=== PATIENT | female | born 1935 | race Caucasian/White ===

== ENCOUNTER 2019-03-30 16:47 | Inpatient (IN) | payer MEDICARE, OTHER ==
[2019-03-30] MEDS ORDERED: SODIUM CHLORIDE 0.9% 1,000 ML IV ONE (17:17)
--- NOTE | 2019-03-30 17:22 | ED ---
General Adult HPI - General Chief complaint: Urogenital Stated complaint: Urogenital Time Seen by Provider: 03/30/19 16:53 Source: EMS, RN notes reviewed, old records reviewed Mode of arrival: EMS Limitations: no limitations - History of Present Illness Initial comments: Patient is an 84-year-old female with recent history of right leg fracture. She reports that she fell on March 21 and was sent to [facility]. She reports that she had ORIF procedure and then [facility]. She reports that when she fell she had a prolapsed uterus at that time. Patient reports that he has been out for the past week. Patient was sent over for further evaluation. She denies any abdominal surgical history. Staff lay she has ileus complaining distention and she did have to have a Fleet enema to have a bowel movement today. Patient reports she's been urinating around the uterine prolapse. She's had 3 vaginal deliveries. - Related Data Allergies Allergy/AdvReac Type Severity Reaction Status Date / Time Penicillins Allergy Unknown Verified 03/30/19 17:23 Childhood Review of Systems ROS Statement: Those systems with pertinent positive or pertinent negative responses have been documented in the HPI. ROS Other: All systems not noted in ROS Statement are negative. Past Medical History Past Medical History: No Reported History History of Any Multi-Drug Resistant Organisms: MRSA Date of last positivie culture/infection: 11/19/16 MDRO Source:: Urine Additional Past Surgical History / Comment(s): displaced fracture of lateral malleolus of right fibula Smoking Status: Never smoker Past Alcohol Use History: None Reported Past Drug Use History: None Reported General Exam - General Exam Comments Initial Comments: This is an 84-year-old female. Alert and oriented 3. No significant distress. Limitations: no limitations General appearance: alert, in no apparent distress Head exam: Present: atraumatic, normocephalic, normal inspection Eye exam: Present: normal appearance, PERRL, EOMI. Absent: scleral icterus, con junctival injection, periorbital swelling ENT exam: Present: normal exam, mucous membranes moist Neck exam: Present: normal inspection. Absent: tenderness, meningismus, lymphadenopathy Respiratory exam: Present: normal lung sounds bilaterally. Absent: respiratory distress, wheezes, rales, rhonchi, stridor Cardiovascular Exam: Present: regular rate, normal rhythm, normal heart sounds. Absent: systolic murmur, diastolic murmur, rubs, gallop, clicks GI/Abdominal exam: Present: soft, distended, normal bowel sounds. Absent: guarding, rebound, rigid External exam: Present: other (Patient has a large uterine prolapse, edematous. Approximately size of this football. Patient has no tenderness to palpation over the uterine prolapse.). Absent: normal external exam Extremities exam: Present: normal inspection, full ROM, normal capillary refill. Absent: tenderness, pedal edema, joint swelling, calf tenderness Back exam: Present: normal inspection Neurological exam: Present: alert, oriented X3, CN II-XII intact Psychiatric exam: Present: normal affect, normal mood Skin exam: Present: warm, dry, intact, normal color. Absent: rash Course Vital Signs 03/30/19 16:48 Temperature 98 F Pulse Rate 74 Respiratory 16 Rate Blood Pressure 150/78 O2 Sat by Pulse 91 L Oximetry Medical Decision Making - Medical Decision Making Patient's of 84-year-old female with recent history of right leg fracture. She is metal [place]. She presents today for concern for uterine prolapse. Patient has a very large uterine prolapse approximately size of a football. The uterus is edematous. She has no significant pain. Patient had Amrtinez catheter placed by Dr. Davila. Approximately 1800 mL of urine was removed from patient's bladder. Dr. Christensen was in to evaluate the Patient will take the Patient reports that his surgery. - Lab Data Result diagrams: 03/30/19 17:30 Lab Results 03/30/19 03/30/19 03/30/19 Range/Units 17:30 17:30 18:10 WBC 11.6 H (3.8-10.6) k/uL RBC 4.53 (3.80-5.40) m/uL Hgb 13.4 (11.4-16.0) gm/dL Hct 40.9 (34.0-46.0) % MCV 90.3 (80.0-100.0) fL MCH 29.5 (25.0-35.0) pg MCHC 32.7 (31.0-37.0) g/dL RDW 13.6 (11.5-15.5) % Plt Count 224 (150-450) k/uL Neutrophils % 85 % Lymphocytes % 5 % Monocytes % 8 % Eosinophils % 1 % Basophils % 0 % Neutrophils # 10.0 H (1.3-7.7) k/uL Lymphocytes # 0.6 L (1.0-4.8) k/uL Monocytes # 0.9 (0-1.0) k/uL Eosinophils # 0.1 (0-0.7) k/uL Basophils # 0.0 (0-0.2) k/uL PT 10.3 (9.0-12.0) sec INR 1.0 (<1.2) APTT 23.8 (22.0-30.0) sec Urine Color Yellow Urine Appearance Cloudy H (Clear) Urine pH 5.0 (5.0-8.0) Ur Specific [place] 1.012 (1.001-1.035) Urine Protein Negative (Negative) Urine Glucose (UA) Negative (Negative) Urine Ketones Negative (Negative) Urine Blood Moderate H (Negative) Urine Nitrite Positive H (Negative) Urine Bilirubin Negative (Negative) Urine Urobilinogen <2.0 (<2.0) mg/dL Ur Leukocyte Esterase Large H (Negative) Urine RBC 162 H (0-5) /hpf Urine WBC 47 H (0-5) /hpf Ur Squamous Epith Cells 3 (0-4) /hpf Amorphous Sediment Rare H (None) /hpf Urine Bacteria Occasional H (None) /hpf Urine Mucus Occasional H (None) /hpf Disposition Clinical Impression: Complete uterine prolapse Disposition: ADMITTED IP TO [facility] Condition: Stable Is patient prescribed a controlled substance at d/c from ED?: No Referrals: Ethan Mendoza MD [Primary Care Provider] - 1-2 days Time of Disposition: 18:23
[2019-03-30 18:04] LABS: Basophils % (A) 0 %; Eosinophils # (A) 0.1 k/uL (0-0.7); Eosinophils % (A) 1 %; HCT 40.9 % (34.0-46.0); HGB 13.4 gm/dL (11.4-16.0); Lymphocytes # (A) 0.6 k/uL (1.0-4.8); Lymphocytes % (A) 5 %; MCH 29.5 pg (25.0-35.0); MCHC 32.7 g/dL (31.0-37.0); MCV 90.3 fL (80.0-100.0); Mean Platelet Volume 6.5; Monocytes # (A) 0.9 k/uL (0-1.0); Monocytes % (A) 8 %; Neutrophils % (A) 85 %; Platelet Count 224 k/uL (150-450); RBC 4.53 m/uL (3.80-5.40); RDW 13.6 % (11.5-15.5); WBC 11.6 k/uL (3.8-10.6)
--- NOTE | 2019-03-30 18:05 | XR ---
EXAMINATION TYPE: XR KUB DATE OF EXAM: 03/30/2019 COMPARISON: NONE HISTORY: Prolapsed uterus TECHNIQUE: 2 views supine FINDINGS: There is gas in multiple loops of bowel without disproportionate dilation of any one loop. There is mild atelectasis left lung base. There is no sign of free air. There is no sign of a mass. T here are no pathologic calcifications definitely over the kidneys. IMPRESSION: There is evidence of intestinal ileus. No free air.
[2019-03-30 18:06] LABS: Albumin 3.2 g/dL (3.5-5.0); Calcium 8.2 mg/dL (8.4-10.2); Potassium 4.5 mmol/L (3.5-5.1); Total Protein 6.1 g/dL (6.3-8.2)
[2019-03-30 18:10] LABS: Partial Thromboplastin Time 23.8 sec (22.0-30.0); Prothrombin Time 10.3 sec (9.0-12.0)
[2019-03-30 18:21] LABS: Amorphous Sediment,Urine Rare /hpf; Appearance,Urine Cloudy (Clear); Bacteria,Urine Occasional /hpf; Bilirubin,Urine Negative (Negative); Blood,Urine Moderate (Negative); Color,Urine Yellow; Glucose,Urine (UA) Negative (Negative); Ketones,Urine Negative (Negative); Leukocyte Esterase,Urine Large (Negative); Mucus,Urine Occasional /hpf; Nitrite,Urine Positive (Negative); Protein,Urine Negative (Negative); RBC,Urine 162 /hpf (0-5); Specific Gravity,Urine 1.012 (1.001-1.035); Squamous Epithelial Cell,Urine 3 /hpf (0-4); Urobilinogen,Urine <2.0 mg/dL (<2.0); WBC,Urine 47 /hpf (0-5)
--- NOTE | 2019-03-30 18:22 | P.HPOB ---
History of Present Illness H&P Date: 03/30/19 Chief Complaint: Uterine prolapse This is a 84-year-old female 3 para 3001 that presents from [facility] facility with complaints of prolapsing uterus. Patient states that she underwent a fall and fracture repair at [facility] on 03/21. She states that she felt so hard her uterus fell out. She denies discomfort at this time. She denies vaginal bleeding. She does wear a diaper and is incontinent of urine. She states her last bowel movement was this morning after a fleets enema. Prior to this it was on 03/21 the time of the fal l. She is denying nausea or vomiting. She states she has been menopausal since age 48 and denies any vaginal bleeding since that time. She does wear a diaper and is incontinent of urine. As stated above she is a 3 para 3001 she had 3 spontaneous vaginal deliveries of 8 pound babies, 2 of her children are 1 remains living. Bedside ultrasound is complete Martinez catheter is seen within the bladder, uterus appears in vagina, ovaries were not visualized secondary to bowel in the adnexa. Review of Systems Constitutional: Denies chills, Denies fatigue, Denies fever Cardiovascular: Denies chest pain, Denies edema Respiratory: Denies dyspnea Gastrointestinal: Reports constipation, Denies abdominal pain, Denies diarrhea, Denies nausea, Denies vomiting Genitourinary: Denies abnormal vaginal bleeding Menstruation: Reports postmenopausal Past Medical History Past Medical History: No Reported History History of Any Multi-Drug Resistant Organisms: MRSA Date of last positivie culture/infection: 11/19/16 MDRO Source:: Urine Additional Past Surgical History / Comment(s): displaced fracture of lateral malleolus of right fibula Smoking Status: Never smoker Past Alcohol Use History: None Reported Past Drug Use History: None Reported Medications and Allergies Allergies Allergy/AdvReac Type Severity Reaction Status Date / Time Penicillins Allergy Unknown Verified 03/30/19 17:23 Childhood Exam Osteopathic Statement: *. No significant issues noted on an osteopathic structural exam other than those noted in the History and Physical/Consult. 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 Breathing is noted to be nonlabored her heart has regular rate and rhythm her abdomen is soft and nontender on inspection of the patient's external vaginal anatomy a large protr uding mass suspicious for the uterus is noted Martinez catheter was placed at this time in copious amount of clear yellow urine were emptied from the bladder. I was unable to do a reasonable pelvic exam given the size of the masses protruding from the uterus. Once again bedside ultrasound confirmed that the bladder was empty now that the Martinez catheter had been placed in 1800 mL of urine had been removed. After the bladder was emptied the patient was reexamined and the mass was not any significantly smaller Results Result Diagrams: 03/30/19 17:30 Abnormal Lab Results - Last 24 Hours (Table) 03/30/19 Range/Units 17:30 WBC 11.6 H (3.8-10.6) k/uL Neutrophils # 10.0 H (1.3-7.7) k/uL Lymphocytes # 0.6 L (1.0-4.8) k/uL Assessment and Plan (1) Complete uterine prolapse Current Visit: Yes Status: Acute Code(s): N81.3 - COMPLETE UTEROVAGINAL PROLAPSE SNOMED Code(s): 32024416 Plan: Given the patient's physical findings recommending exam under anesthesia, vaginal hysterectomy, possible expiratory laparotomy, diagnostic cystoscopy. U nsure if the bladder is involved in this extrusion/mass coming through the vagina. The cervix appears at the end of the mass I'm suspicious that it is just uterus. Patient was counseled on these findings and risks of surgery including bladder injury, bowel injury. Patient states understanding questions are answered. Patient states she has 1 son that is on his way to the hospital but she denies any questions and states understanding of the procedure at hand. Will proceed to the operating suite. Anesthesia and the OR team were notified.
[2019-03-30] MEDS ORDERED: NALOXONE 0.4 MG/ML 1 ML VIAL IV PRN ×2 (18:23→19:53)
[2019-03-30] MEDS ORDERED: ACETAMINOPHEN TAB 325 MG TAB PO PRN (18:23)
[2019-03-30] MEDS ORDERED: KETOROLAC 30 MG/ML 1 ML VIAL IVP PRN (18:23)
[2019-03-30] MEDS ORDERED: IBUPROFEN 400 MG TAB PO PRN (18:23)
[2019-03-30] MEDS ORDERED: ONDANSETRON 4 MG/2 ML VIAL IVP PRN (18:23)
[2019-03-30] MEDS ORDERED: LEVOFLOXACIN 750MG-D5W PMX 750 MG in DEXTROSE/WATER 1 150ML.BAG IVPB ONE (18:41)
--- NOTE | 2019-03-30 18:51 | US ---
EXAMINATION TYPE: US pelvic complete DATE OF EXAM: 03/30/2019 COMPARISON: NONE CLINICAL HISTORY: Pain. Patient presents with large prolapse, need to assess if prolapse is just UT v ersus bladder TECHNIQUE: TA. Transabdominal sonographic Date of LMP: 40 yrs ago EXAM MEASUREMENTS: Assessment of pelvis prior to patient going to OR for prolapsed UT 1. Uterus: prolapsed UT, minimal portion of UT seen at vaginal canal 3. Right Ovary: not seen due to atrophy and bowel gas 4. Left Ovary: not seen due to atrophy and bowel gas 5. Bilateral Adnexa: wnl 6. Posterior cul-de-sac: could see some uterine tissue at vaginal canal patient was cathed and they just drained bladder, was able to see mariano anterior to minimal UT tiss ue at vaginal canal Dr Davila in room at time of scan IMPRESSION: The entire uterus including uterine fundus is below the level of the Mariano catheter in th e urinary bladder and related to uterine prolapse. There is no free fluid in the pelvis.
[2019-03-30] MEDS ORDERED: LACTATED RINGERS 1,000 ML IV ONE (19:20)
[2019-03-30] MEDS ORDERED: PROPOFOL 10 MG/ML 20 ML VIAL IV ONE (19:20)
[2019-03-30] MEDS ORDERED: fentaNYL (PF) 50 MCG/ML 2 ML AMP ONE (19:20)
[2019-03-30] MEDS ORDERED: NEOSTIGMINE 1 MG/ML 10 ML VIAL ONE (19:20)
[2019-03-30] MEDS ORDERED: .MORPHINE SULFATE (INJ) 10 MG/ML SYRINGE ONE (19:20)
[2019-03-30] MEDS ORDERED: ROCURONIUM BROMIDE 10 MG/ML 10 ML VIAL IV ONE (19:20)
[2019-03-30] MEDS ORDERED: GLYCOPYRROLATE 0.2 MG/ML 2 ML VIAL ONE (19:20)
[2019-03-30] MEDS ORDERED: MORPHINE SULFATE (PF) 0.3 MG/0.3 ML SYR ONE (19:20)
[2019-03-30] MEDS ORDERED: SODIUM CHLORIDE 0.9% 50 ML with ceFAZolin 2,000 MG IV ONE ×2 (19:32)
[2019-03-30] MEDS ORDERED: NALBUPHINE 10 MG/ML (1 ML AMP) IV PRN (19:53)
[2019-03-30] MEDS ORDERED: METOCLOPRAMIDE 5 MG/ML 2 ML VIAL IVP PRN ×2 (19:53→19:54)
[2019-03-30] MEDS ORDERED: MORPHINE SULFATE 2 MG/ML SYRINGE IVP PRN (19:53)
[2019-03-30] MEDS ORDERED: MORPHINE SULFATE 2 MG/ML SYRINGE IV PRN (19:54)
[2019-03-30] MEDS ORDERED: Acetaminophen-Codeine 300-30mg TAB PO PRN (20:03)
[2019-03-30] MEDS ORDERED: ACETAMINOPHEN IV (For NPO) 1,000 MG in EMPTY BAG 1 BAG IVPB ONE (20:03)
--- NOTE | 2019-03-30 20:31 | P.OP ---
Date of Procedure: 03/30/19 Preoperative Diagnosis: uterine prolapse Postoperative Diagnosis: complete vaginal prolapse Procedure(s) Performed: exam under anesthesia, pessary placement Anesthesia: CASANDRA Surgeon: Isamar Davila Recreation Facility Attendant #1: iTm Soriano Estimated Blood Loss (ml): 0 Urine output (ml): 100 Pathology: none sent Condition: stable Disposition: PACU Indications for Procedure: This 84-year-old female presented from [facility] with vaginal mass, the size of a small [place] ball was noted on exam and was unable to be reduced in the emergency department. Cervix was visualized Martinez catheter was able to be placed with some difficulty and quickly cleared 1800 mL of urine. This appears to be a long-standing problem for the patient but she states she noted the severity of prolapsed increase after her fall on 03/21. Operative Findings: Complete vaginal prolapse, able to be reduced with some difficulty under anesthesia, size 7 donut pessary placed in the OR. Description of Procedure: This pleasant 84-year-old female was seen in the emergency department for evaluation of large vaginal returning mass. Cervix was visualized. Patient was counseled on the need for exam under anesthesia given the size of the mass with possible hysterectomy possible exploratory laparotomy. Patient stated understanding risks were reviewed including but not limited to infection, damage to bladder, bowel, ureteric injury. All questions were answered to patient's satisfaction. Patient was taken back to the operating suite where general anesthesia was obtained without difficulty by the anesthesia department. She was prepped and draped in the normal sterile fashion in the dorsal lithotomy position. A Martinez catheter had been placed under sterile technique in the emergency department. Gentle manipulation of the patient's vaginal vault revealed complete vaginal prolapse which was gently reduced with some difficulty. A size 7 donut pessary was placed at the top of the vagina to aid in the reduction of the vaginal wall/vault. Given the severity of the prolapse we will send to tertiary care center for possible colpocleisis, sacrocolpopexy. Patient tolerated this procedure well all counts were correct 2 and patient was taken to the recovery room awake in stable condition.
[2019-03-30] MEDS: LACTATED RINGERS 1,000 ML IV SCH ×2 (21:22)
[2019-03-31 05:47] LABS: Basophils % (A) 0 %; Eosinophils # (A) 0.1 k/uL (0-0.7); Eosinophils % (A) 1 %; HCT 38.1 % (34.0-46.0); HGB 12.4 gm/dL (11.4-16.0); Lymphocytes # (A) 0.4 k/uL (1.0-4.8); Lymphocytes % (A) 4 %; MCH 30.2 pg (25.0-35.0); MCHC 32.5 g/dL (31.0-37.0); MCV 92.9 fL (80.0-100.0); Mean Platelet Volume 6.6; Monocytes # (A) 0.4 k/uL (0-1.0); Monocytes % (A) 5 %; Neutrophils # (A) 7.4 k/uL (1.3-7.7); Neutrophils % (A) 89 %; Platelet Count 203 k/uL (150-450); RDW 15.2 % (11.5-15.5); WBC 8.3 k/uL (3.8-10.6)
[2019-03-31 05:58] LABS: Calcium 7.8 mg/dL (8.4-10.2); Potassium 4.2 mmol/L (3.5-5.1)
[2019-03-31] MEDS ORDERED: PANTOPRAZOLE 40 MG/10 ML VIAL IV SCH (09:00)
--- NOTE | 2019-03-31 09:12 | P.PN ---
Progress Note - Text Progress Note Date: 03/31/19 Patient is without complaints. Denies pain or pruritis. Denies weakness or paresthesia. Denies headache. Spinal site clean and dry A/P POD#1 s/p spinal duramorph for uterine prolapse repair - doing well
--- NOTE | 2019-03-31 10:35 | P.PN ---
Subjective Progress Note Date: 03/31/19 Principal diagnosis: vaginal vault proplapse, pessary placement and Exam under anesthesia, POD 1 Patient did well overnight. This morning she is without concerns or complaints. Labs are reviewed slight improvement of her kidney function is noted we are awaiting medicine consult. She denies vaginal bleeding. Her Martinez remains in place. She tolerated clear liquids this morning without nausea or vomiting. Objective - Vital Signs Vital signs: Vital Signs Temp 98.6 F 03/31/19 07:00 Pulse 71 03/31/19 08:30 Resp 16 03/31/19 09:15 BP 118/74 03/31/19 07:00 Pulse Ox 93 L 03/31/19 07:00 Intake & Output 03/30/19 03/31/19 03/31/19 18:59 06:59 18:59 Intake Total 1650 Output Total 1800 1450 350 Balance -1800 200 -350 Weight 75.75 kg Intake: IV 550 Intake, IV Titration 1100 Amount Lactated Ringers 1,000 ml 1100 @ 100 mls/hr IV .Q10H [facility] Rx#:[id number] Output: Urine 1800 1450 350 Uretheral (Martinez) 1800 Estimated Blood Loss 0 Other: Voiding Method Indwelling Catheter Indwelling Catheter Indwelling Catheter - Constitutional General appearance: Present: average body habitus, cooperative, no acute distress - EENT Eyes: Present: EOMI - Gastrointestinal General gastrointestinal: Present: soft - Genitourinary Genitourinary Comment(s): On inspection of the patient's external genitalia the pessary seems to be in place cystoscopy with no protrusion of the vaginal vault at this time. - Psychiatric Psychiatric: Present: appropriate affect, intact judgment & insight - Labs CBC & Chem 7: 03/31/19 05:34 03/31/19 05:34 Labs: Abnormal Lab Results - Last 24 Hours (Table) 03/30/19 03/30/19 03/30/19 Range/Units 17:30 17:30 18:10 WBC 11.6 H (3.8-10.6) k/uL Neutrophils # 10.0 H (1.3-7.7) k/uL Lymphocytes # 0.6 L (1.0-4.8) k/uL Sodium 130 L (137-145) mmol/L Carbon Dioxide 18 L (22-30) mmol/L BUN 41 H (7-17) mg/dL Creatinine 1.60 H (0.52-1.04) mg/dL Glucose 130 H (74-99) mg/dL Calcium 8.2 L (8.4-10.2) mg/dL Total Protein 6.1 L (6.3-8.2) g/dL Albumin 3.2 L (3.5-5.0) g/dL Urine Appearance Cloudy H (Clear) Urine Blood Moderate H (Negative) Urine Nitrite Positive H (Negative) Ur Leukocyte Esterase Large H (Negative) Urine RBC 162 H (0-5) /hpf Urine WBC 47 H (0-5) /hpf Amorphous Sediment Rare H (None) /hpf Urine Bacteria Occasional H (None) /hpf Urine Mucus Occasional H (None) /hpf 03/31/19 03/31/19 Range/Units 05:34 05:34 WBC (3.8-10.6) k/uL Neutrophils # (1.3-7.7) k/uL Lymphocytes # 0.4 L (1.0-4.8) k/uL Sodium 136 L (137-145) mmol/L Carbon Dioxide (22-30) mmol/L BUN 24 H (7-17) mg/dL Creatinine (0.52-1.04) mg/dL Glucose 145 H (74-99) mg/dL Calcium 7.8 L (8.4-10.2) mg/dL Total Protein (6.3-8.2) g/dL Albumin (3.5-5.0) g/dL Urine Appearance (Clear) Urine Blood (Negative) Urine Nitrite (Negative) Ur Leukocyte Esterase (Negative) Urine RBC (0-5) /hpf Urine WBC (0-5) /hpf Amorphous Sediment (None) /hpf Urine Bacteria (None) /hpf Urine Mucus (None) /hpf Assessment and Plan (1) Complete uterine prolapse Current Visit: Yes Status: Acute Code(s): N81.3 - COMPLETE UTEROVAGINAL PROLAPSE SNOMED Code(s): 87204977 (2) Vaginal vault prolapse Current Visit: Yes Status: Acute Code(s): N81.9 - FEMALE GENITAL PROLAPSE, UNSPECIFIED SNOMED Code(s): 939610047 (3) UTI (urinary tract infection) Current Visit: Yes Status: Acute Code(s): N39.0 - URINARY TRACT INFECTION, SITE NOT SPECIFIED SNOMED Code(s): 49745315 (4) Acute kidney injury Current Visit: Yes Status: Acute Code(s): N17.9 - ACUTE KIDNEY FAILURE, UNSPECIFIED SNOMED Code(s): 74029320 Plan: Awaiting medicine input for medical management. At this time no [employer] concerns remain, and I feel her admission/care should be transferred to internal medicine. Discussed with patient due to the severity of her prolapse would recommend follow-up appointment with Dr. Shaffer at [facility]. Phone number is [phone]
[2019-03-31] MEDS: LACTATED RINGERS 1,000 ML IV SCH ×3 (19:48→19:49)
[2019-04-01] MEDS: LACTATED RINGERS 1,000 ML IV SCH ×4 (03:17→23:44)
[2019-04-01] MEDS: PANTOPRAZOLE 40 MG TABLET PO SCH (08:42)
--- NOTE | 2019-04-01 09:54 | P.CONS ---
History of Present Illness - Reason for Consult Consult date: 03/31/19 Medical management/UTI/leukocytosis - History of Present Illness 84-year-old female 3 para 3001 that presents from [facility] care facility with complaints of prolapsing uterus. Patient states that she un derwent a fall and fracture repair at [facility] on 03/21. She states that she felt so hard her uterus fell out. Patient was seen by gynecology and underwent pessary placement for complete vaginal prolapse Upon admission patient's white blood count was 11.6 with sodium of 1:30, BUN of 41 and creatinine of 1.60; UA is positive for nitrites, leukocyte esterase and WBCs; patient did receive antibiotic prophylaxis prior to procedure resulting in trending down of white blood count to normal; I do suspect acute UTI at this time Review of Systems Constitutional: Denies chills, Denies fever Eyes: denies blurred vision, denies loss of vision Ears, nose, mouth and throat: Denies epistaxis, Denies nasal congestion Cardiovascular: Denies chest pain, Denies shortness of breath Respiratory: Denies cough with sputum Gastrointestinal: Denies diarrhea, Denies nausea, Denies vomiting Genitourinary: Denies abnormal vaginal bleeding Musculoskeletal: Denies frequent falls, Denies leg numbness/tingling Neurological: Denies confusion, Denies double vision, Denies gait dysfunction Psychiatric: Denies anxiety, Denies confusion Endocrine: Denies cold intolerance, Denies heat intolerance Hematologic/Lymphatic: Denies easy bleeding, Denies easy bruising Past Medical History Past Medical History: No Reported History History of Any Multi-Drug Resistant Organisms: MRSA Year Discovered:: 11/19/16 MDRO Source:: Urine Additional Past Surgical History / Comment(s): displaced fracture of lateral malleolus of right fibula Smoking Status: Never smoker Past Alcohol Use History: None Reported Past Drug Use History: None Reported Medications and Allergies Home Medications Medication Instructions Recorded Confirmed Type Aspirin EC [Ecotrin Low Dose] 81 mg PO DAILY 03/30/19 03/30/19 History Bisacodyl [Dulcolax] 10 mg RECTAL DAILY PRN 03/30/19 03/30/19 History Ensure Clear 1 can PO TID 03/30/19 03/30/19 History HYDROcodone/APAP 5-325MG [[place] 1 tab PO Q4HR PRN 03/30/19 03/30/19 History 5-325] Na Phos,M-B/Na Phos,Di-Ba [Fleet 133 ml RECTAL ONCE 03/30/19 03/30/19 History Adult] Omeprazole 20 mg PO DAILY 03/30/19 03/30/19 History amLODIPine [Norvasc] 5 mg PO DAILY 03/30/19 03/30/19 History Allergies Allergy/AdvReac Type Severity Reaction Status Date / Time Penicillins Allergy Unknown Verified 03/30/19 20:54 Childhood Physical Exam Vitals: Vital Signs Temp Pulse Pulse Resp BP BP Pulse Ox 03/31/19 09:15 16 03/31/19 08:30 71 16 03/31/19 07:00 98.6 F 71 16 118/74 93 L 03/31/19 05:21 16 03/31/19 03:44 18 03/31/19 01:50 98.1 F 75 18 151/84 92 L 03/31/19 00:56 18 03/30/19 23:43 18 03/30/19 23:10 72 135/74 90 L 03/30/19 22:55 69 134/73 90 L 03/30/19 22:40 72 136/73 92 L 03/30/19 22:25 72 143/72 92 L 03/30/19 22:10 70 138/72 91 L 03/30/19 21:55 73 145/72 93 L 03/30/19 21:40 70 135/72 93 L 03/30/19 21:25 70 143/74 92 L 03/30/19 21:10 98.1 F 74 17 140/68 94 L 03/30/19 20:47 82 18 123/63 97 03/30/19 20:32 80 18 139/77 99 03/30/19 20:15 81 18 135/77 99 03/30/19 20:11 97.2 F L 90 18 135/72 95 03/30/19 18:51 17 03/30/19 18:30 75 17 144/75 96 03/30/19 18:00 17 03/30/19 16:48 98 F 74 16 150/78 91 L Intake and Output 03/30/19 03/31/19 03/31/19 22:59 06:59 14:59 Intake Total 550 1100 Output Total 1900 1350 350 Balance -1350 -250 -350 Intake: IV 550 Intake, IV Titration 1100 Amount Lactated Ringers 1,000 ml 1100 @ 100 mls/hr IV .Q10H [facility] Rx#:[id number] Output: Urine 1900 1350 350 Uretheral (Martinez) 1800 Estimated Blood Loss 0 Other: Voiding Method Indwelling Catheter Indwelling Catheter Indwelling Catheter Weight 75.75 kg - Constitutional General appearance: Present: average body habitus, cooperative, no acute dis tress - EENT Eyes: Present: anicteric sclerae, EOMI, PERRLA, normal appearance ENT: Present: hearing grossly normal, normal oropharynx Ears: bilateral: normal - Neck Neck: Present: normal ROM. Absent: lymphadenopathy, rigidity, thyromegaly Carotids: negative: bruit present Thyroid: bilateral: normal size, negative: enlarged, nodule - Respiratory Respiratory: bilateral: CTA, negative: rales, rhonchi, wheezing - Cardiovascular Rhythm: regular Heart sounds: normal: S1, S2 Abnormal Heart Sounds: Absent: systolic murmur, diastolic murmur - Gastrointestinal General gastrointestinal: Present: normal bowel sounds, soft. Absent: distended, organomegaly, tenderness - Genitourinary Genitourinary Comment(s): deferred - Integumentary Integumentary: Present: normal turgor. Absent: jaundiced, rash, ulcer - Neurologic Neurologic: Present: CNII-XII intact. Absent: focal deficits - Musculoskeletal Musculoskeletal: Present: gait normal, strength equal bilaterally - Psychiatric Psychiatric: Present: A&O x's 3, appropriate affect, intact judgment & insight Results CBC & Chem 7: 03/31/19 05:34 03/31/19 05:34 Labs: Abnormal Lab Results - Last 24 Hours (Table) 03/30/19 03/30/19 03/30/19 Range/Units 17:30 17:30 18:10 WBC 11.6 H (3.8-10.6) k/uL Neutrophils # 10.0 H (1.3-7.7) k/uL Lymphocytes # 0.6 L (1.0-4.8) k/uL Sodium 130 L (137-145) mmol/L Carbon Dioxide 18 L (22-30) mmol/L BUN 41 H (7-17) mg/dL Creatinine 1.60 H (0.52-1.04) mg/dL Glucose 130 H (74-99) mg/dL Calcium 8.2 L (8.4-10.2) mg/dL Total Protein 6.1 L (6.3-8.2) g/dL Albumin 3.2 L (3.5-5.0) g/dL Urine Appearance Cloudy H (Clear) Urine Blood Moderate H (Negative) Urine Nitrite Positive H (Negative) Ur Leukocyte Esterase Large H (Negative) Urine RBC 162 H (0-5) /hpf Urine WBC 47 H (0-5) /hpf Amorphous Sediment Rare H (None) /hpf Urine Bacteria Occasional H (None) /hpf Urine Mucus Occasional H (None) /hpf 03/31/19 03/31/19 Range/Units 05:34 05:34 WBC (3.8-10.6) k/uL Neutrophils # (1.3-7.7) k/uL Lymphocytes # 0.4 L (1.0-4.8) k/uL Sodium 136 L (137-145) mmol/L Carbon Dioxide (22-30) mmol/L BUN 24 H (7-17) mg/dL Creatinine (0.52-1.04) mg/dL Glucose 145 H (74-99) mg/dL Calcium 7.8 L (8.4-10.2) mg/dL Total Protein (6.3-8.2) g/dL Albumin (3.5-5.0) g/dL Urine Appearance (Clear) Urine Blood (Negative) Urine Nitrite (Negative) Ur Leukocyte Esterase (Negative) Urine RBC (0-5) /hpf Urine WBC (0-5) /hpf Amorphous Sediment (None) /hpf Urine Bacteria (None) /hpf Urine Mucus (None) /hpf Assessment and Plan Assessment: 1. Vaginal prolapse; status post pessary placement under anesthesia; patient is POD 1 2. UTI; patient did have a dose of prophylactic antibiotic preprocedure resulting in downtrending of white blood count from 11 upon admission down to normal; patient remains afebrile; UA seems grossly infected; we will monitor and trend WBC and trend temperatures; urine culture is obtained and pending; we will hold off on antibiotic at this time and possibly start patient on oral antibiotics if white blood count trends up or patient develops fever 3. Acute renal injury; BUN/creatinine has trended down slowly from 41/1.60 224/0.78; we will continue slow IV fluid hydration and monitor renal function and electrolytes closely 4. Hyponatremia; mild; continue with lactated Ringer at 100 mL an hour; monitor electrolytes closely 5. DVT/GI prophylaxis; SCDs/Protonix CODE STATUS; full code Time with Patient: Greater than 30
--- NOTE | 2019-04-01 14:13 | P.PN ---
Subjective Progress Note Date: 04/01/19 Principal diagnosis: Medical management/UTI/leukocytosis 84-year-old female 3 para 3001 that presents from [facility] care facility with complaints of prolapsing uterus. Patient states that she underwent a fall and fracture repair at [facility] on 03/21. She states that she felt so hard her uterus fell out. Patient was seen by gynecology and underwent pessary placement for complete vaginal prolapse Upon admission patient's white blood count was 11.6 with sodium of 1:30, BUN of 41 and creatinine of 1.60; UA is positive for nitrites, leukocyte esterase and WBCs; patient did receive antibiotic prophylaxis prior to procedure resulting in trending down of white blood count to normal; I do suspect acute UTI at this time Objective - Vital Signs Vital signs: Vital Signs Temp 98.9 F 04/01/19 07:24 Pulse 60 04/01/19 08:17 Resp 16 04/01/19 13:00 BP 125/78 04/01/19 07:24 Pulse Ox 93 L 04/01/19 07:24 Intake & Output 03/31/19 04/01/19 04/01/19 18:59 06:59 18:59 Intake Total 1300 1150 Output Total 1100 Balance 200 1150 Intake: Intake, IV Titration 900 1150 Amount Lactated Ringers 1,000 ml 900 1100 @ 100 mls/hr IV .Q10H [facility] Rx#:[id number] ceFAZolin 1,000 mg In 50 Sodium Chloride 0.9% 50 ml @ 100 mls/hr IVPB Q6HR [facility] Rx#:[id number] Oral 400 Output: Urine 1100 Other: Voiding Method Indwelling Catheter Indwelling Catheter Indwelling Catheter - Exam - Constitutional General appearance: Present: average body habitus, cooperative, no acute distress - EENT Eyes: Present: anicteric sclerae, EOMI, PERRLA, normal appearance ENT: Present: hearing grossly normal, normal oropharynx Ears: bilateral: normal - Neck Neck: Present: normal ROM. Absent: lymphadenopathy, rigidity, thyromegaly Carotids: negative: bruit present Thyroid: bilateral: normal size, negative: enlarged, nodule - Respiratory Respiratory: bilateral: CTA, negative: rales, rhonchi, wheezing - Cardiovascular Rhythm: regular Heart sounds: normal: S1, S2 Abnormal Heart Sounds: Absent: systolic murmur, diastolic murmur - Gastrointestinal General gastrointestinal: Present: normal bowel sounds, soft. Absent: distended, organomegaly, tenderness - Genitourinary Genitourinary Comment(s): deferred - Integumentary Integumentary: Present: normal turgor. Absent: jaundiced, rash, ulcer - Neurologic Neurologic: Present: CNII-XII intact. Absent: focal deficits - Musculoskeletal Musculoskeletal: Present: gait normal, strength equal bilaterally - Psychiatric Psychiatric: Present: A&O x's 3, appropriate affect, intact judgment & insight - Labs CBC & Chem 7: 03/31/19 05:34 03/31/19 05:34 Labs: Microbiology - Last 24 Hours (Table) 03/30/19 18:10 Urine Culture - Preliminary Urine,Catheterized Assessment and Plan Assessment: 1. Vaginal prolapse; status post pessary placement under anesthesia; patient is POD 1 2. UTI; patient did have a dose of prophylactic antibiotic preprocedure resulting in downtrending of white blood count from 11 upon admission down to normal; patient remains afebrile; UA seems grossly infected; we will monitor and trend WBC and trend temperatures; urine culture is obtained and pending; we will hold off on antibiotic at this time and possibly start patient on oral antibiotics if white blood count trends up or patient develops fever 3. Acute renal injury; BUN/creatinine has trended down slowly from 41/1.60 224/0.78; we will continue slow IV fluid hydration and monitor renal function and electrolytes closely 4. Hyponatremia; mild; continue with lactated Ringer at 100 mL an hour; monitor electrolytes closely 5. DVT/GI prophylaxis; SCDs/Protonix CODE STATUS; full code Time with Patient: Greater than 30
[2019-04-02 07:13] LABS: Glucose,Whole Blood 93 mg/dL (75-99)
[2019-04-02] MEDS: PANTOPRAZOLE 40 MG TABLET PO SCH (08:45)
[2019-04-02] MEDS: amLODIPine 5 MG TAB PO SCH (08:45)
--- NOTE | 2019-04-02 12:15 | P.DS ---
Providers Date of admission: 03/30/19 18:19 Expected date of discharge: 04/02/19 Attending physician: Ok Echevarria Consults: 03/30/19 18:23 Consult Physician Stat Consulting Provider: Isamar Davila Consult Reason/Comments: Uterine prolapse, med consult Do you want consulting provider notified?: Yes Primary care physician: [place] [facility] Course: Final Diagnoses: -Complete uterine prolapse, Vaginal prolapse, status post pessary placement -Acute renal failure, improving -Hyponatremia, improving Hospital course: This 84-year-old female in a with complete uterine prolapse, vaginal vault prolapse ,status post pessary placement, acute renal failure, acute UTI ruled out -urine culture reporting no growth at 18 hours and multiple other medical issues. Renal function significantly improved. Pain controlled on Tylenol and Motrin. Patient has been recommended by OLIVE PICKER to follow with Dr. Shaffer at [facility]. Cleared by the OLIVE PICKER. Patient is being discharged to [facility] subacute rehab in stable condition with guarded prognosis. Microbiology 03/30/19 18:10 Urine,Catheterized Urine Culture - Final EXAM: GENERAL: Alert and oriented 3, no acute distress CARDIOVASCULAR: S1, S2 regular..No murmur RESPIRATION: Breath sounds diminished in the bases. No rhonchi or crackles. ABDOMEN: Soft, nontender . No guarding. no masses palpable. Bowel sounds heard. NERVOUS SYSTEM: Diffuse weakness No focal deficits The impression and plan of care has been dictated as directed. : I performed a history and examination of this patient, discussed the same with the dictator. I agree with the dictator's note ,documented as a scribe. Any additional findings or plans will be noted. Time taken: 35 minutes Patient Condition at Discharge: Stable Plan - Discharge Summary Discharge Rx Participant: Yes New Discharge Prescriptions: New Ibuprofen [Motrin] 400 mg PO Q6HR PRN tab PRN Reason: Mild Pain Or Fever > 100.5 Acetaminophen Tab [Tylenol] 650 mg PO Q6HR PRN tab PRN Reason: Mild Pain Or Fever > 100.5 Continue amLODIPine [Norvasc] 5 mg PO DAILY Aspirin EC [Ecotrin Low Dose] 81 mg PO DAILY Ensure Clear 1 can PO TID #0 Discontinued HYDROcodone/APAP 5-325MG [[place] 5-325] 1 tab PO Q4HR PRN PRN Reason: Pain No Action Na Phos,M-B/Na Phos,Di-Ba [Fleet Adult] 133 ml RECTAL ONCE Omeprazole 20 mg PO DAILY Bisacodyl [Dulcolax] 10 mg RECTAL DAILY PRN PRN Reason: Constipation Discharge Medication List Aspirin EC [Ecotrin Low Dose] 81 mg PO DAILY 03/30/19 [History] Bisacodyl [Dulcolax] 10 mg RECTAL DAILY PRN 03/30/19 [History] Na Phos,M-B/Na Phos,Di-Ba [Fleet Adult] 133 ml RECTAL ONCE 03/30/19 [History] Omeprazole 20 mg PO DAILY 03/30/19 [History] amLODIPine [Norvasc] 5 mg PO DAILY 03/30/19 [History] Acetaminophen Tab [Tylenol] 650 mg PO Q6HR PRN tab 04/02/19 [Rx] Ensure Clear 1 can PO TID #0 04/02/19 [Rx] Ibuprofen [Motrin] 400 mg PO Q6HR PRN tab 04/02/19 [Rx] Follow up Appointment(s)/Referral(s): Dr. Shaffer, [facility] [Other] - 1 Week Ethan Mendoza MD [Primary Care Provider] - 3 Days Seun Ly, [NON-STAFF] - As Needed Activity/Diet/Wound Care/Special Instructions: jackson Reed as per surgery
--- NOTE | 2019-04-02 16:10 | P.PN ---
Subjective Progress Note Date: 04/02/19 This is an 84-year-old female in a with complete uterine prolapse, vaginal vault prolapse ,status post pessary placement, acute renal failure, acute UTI ruled out -urine culture reporting no growth at 18 hours and multiple other medical issues. Renal function significantly improved. Pain controlled on Tylenol and Motrin. Patient has been recommended by SHIRRER to follow with Dr. Shaffer at [facility]. Cleared by the SHIRRER. Patient is awaiting authorization to be discharged to [facility] subacute rehab in stable condition with guarded prognosis. Objective - Vital Signs Vital signs: Vital Signs Temp 98.5 F 04/02/19 07:00 Pulse 62 04/02/19 08:00 Resp 16 04/02/19 08:00 BP 157/75 04/02/19 07:00 Pulse Ox 93 L 04/02/19 07:00 Intake & Output 04/01/19 04/02/19 04/02/19 18:59 06:59 18:59 Intake Total 50 Output Total 5202 359 5722 Balance -1100 700 -2750 Intake: Intake, IV Titration 50 Amount ceFAZolin 1,000 mg In 50 Sodium Chloride 0.9% 50 ml @ 100 mls/hr IVPB Q8HR [facility] Rx#:[id number] Output: Urine 2756 634 5305 Other: Voiding Method Indwelling Catheter Indwelling Catheter Indwelling Catheter - Exam EXAM: GENERAL: Alert and oriented 3, no acute distress CARDIOVASCULAR: S1, S2 regular..No murmur RESPIRATION: Breath sounds diminished in the bases. No rhonchi or crackles. ABDOMEN: Soft, nontender . No guarding. no masses palpable. Bowel sounds heard. NERVOUS SYSTEM: Diffuse weakness No focal deficits Microbiology 03/30/19 18:10 Urine,Catheterized Urine Culture - Final - Labs CBC & Chem 7: 03/31/19 05:34 03/31/19 05:34 Labs: Microbiology - Last 24 Hours (Table) 03/30/19 18:10 Urine Culture - Final Urine,Catheterized Assessment and Plan Assessment: -Complete uterine prolapse, Vaginal prolapse, status post pessary placement -Acute renal failure, improving -Hyponatremia, improving Plan continue on current medication regime ,monitoring and symptomatic treatment. Discharge planning in progress for tomorrow pending authorization to subacute rehab.
[2019-04-02] MEDS: LACTATED RINGERS 1,000 ML IV SCH ×3 (23:13→23:14)
[2019-04-03] MEDS: LACTATED RINGERS 1,000 ML IV SCH (06:03)
[2019-04-03 07:57] VITALS: BP 122/74; PULSE 51; RESP 15; TEMP 98.4
[2019-04-03] MEDS: amLODIPine 5 MG TAB PO SCH (08:34)
[2019-04-03] MEDS: PANTOPRAZOLE 40 MG TABLET PO SCH (08:34)
== END 2019-04-03 15:29 | DRG 760 ==
LOC: EC 16:47 → 4SSUR 18:19
PROVIDERS: ADMIT Family Medicine; ATTEND Family Medicine
PROC: 0WJR7ZZ Inspection of Genitourinary Tract, Via Natural or Artificial Opening Approach (ICD-10-PCS; 2019-03-30)
PROC: 0UHG7GZ Insertion of Pessary into Vagina, Via Natural or Artificial Opening (ICD-10-PCS; principal; 2019-03-30 19:00)
DX: N81.3 Complete uterovaginal prolapse (principal); E87.1 Hypo-osmolality and hyponatremia; N17.9 Acute kidney failure, unspecified; R32 Unspecified urinary incontinence; Z79.82 Long term (current) use of aspirin; Z79.899 Other long term (current) drug therapy; K59.00 Constipation, unspecified; S82.61XD Displaced fracture of lateral malleolus of right fibula, subsequent encounter for closed fracture with routine healing; W19.XXXD Unspecified fall, subsequent encounter
CPT/HCPCS: 36415; 51702; 74018; 76856; 80048; 80053; 81001; 81025; 85025; 85610; 85730; 86850; 86900; 86901; 87086; 96360; 99285

== ENCOUNTER 2019-07-24 17:11 | Emergency (ER) | payer MEDICARE, OTHER ==
[2019-07-24 17:16] VITALS: RESP 16; TEMP 98
[2019-07-24 18:52] LABS: Amorphous Sediment,Urine Rare /hpf; Appearance,Urine Clear (Clear); Bilirubin,Urine Negative (Negative); Blood,Urine Small (Negative); Color,Urine Colorless; Glucose,Urine (UA) Negative (Negative); Ketones,Urine Negative (Negative); Leukocyte Esterase,Urine Moderate (Negative); Nitrite,Urine Negative (Negative); Protein,Urine Negative (Negative); RBC,Urine 1 /hpf (0-5); Specific Gravity,Urine 1.003 (1.001-1.035); Urobilinogen,Urine <2.0 mg/dL (<2.0)
--- NOTE | 2019-07-24 18:52 | ED ---
Female Urogenital HPI - General Chief complaint: Urogenital Stated complaint: catheter needs changed Time Seen by Provider: 07/24/19 17:19 Source: patient Mode of arrival: ambulatory Limitations: no limitations - History of Present Illness Initial comments: Patient is an 84-year-old female presenting to the emergency Department with complaints of needing her catheter changed. He should states she's had a catheter in place since the end of May and she has been unable to have it replaced due to not having the supplies. Patient is needing to have a bladder surgery however they have not been able to do surgery secondary to infections. Patient states she saw an ID doctor who states she does not have an infection but that she needs her catheter changed. Patient denies any fever, chills, belly pain, vaginal pain, nausea, vomiting, diarrhea. Patient is also complaining that she had a pessary in place but she states that her uterus is distended through her vaginal canal. Patient is not sure where this device went. She is afraid that is stuck in her. Patient has no other complaints at this time. Upon arrival to the ER, vital signs are stable. - Related Data Home Medications Medication Instructions Recorded Confirmed Aspirin EC [Ecotrin Low Dose] 81 mg PO DAILY 03/30/19 03/30/19 Bisacodyl [Dulcolax] 10 mg RECTAL DAILY PRN 03/30/19 03/30/19 Na Phos,M-B/Na Phos,Di-Ba [Fleet 133 ml RECTAL ONCE 03/30/19 03/30/19 Adult] Omeprazole 20 mg PO DAILY 03/30/19 03/30/19 amLODIPine [Norvasc] 5 mg PO DAILY 03/30/19 03/30/19 Previous Rx's Medication Instructions Recorded Acetaminophen Tab [Tylenol] 650 mg PO Q6HR PRN tab 04/02/19 Ensure Clear 1 can PO TID #0 04/02/19 Ibuprofen [Motrin] 400 mg PO Q6HR PRN tab 04/02/19 Allergies Allergy/AdvReac Type Severity Reaction Status Date / Time Penicillins Allergy Unknown Verified 03/30/19 20:54 Childhood Review of Systems ROS Statement: Those systems with pertinent positive or pertinent negative responses have been documented in the HPI. ROS Other: All systems not noted in ROS Statement are negative. Past Medical History Past Medical History: No Reported History Additional Past Medical History / Comment(s): Urinary catheter bc pt needs a bladder suspension History of Any Multi-Drug Resistant Organisms: MRSA Date of last positivie culture/infection: 11/19/16 MDRO Source:: Urine Additional Past Surgical History / Comment(s): displaced fracture of lateral malleolus of right fibula Smoking Status: Never smoker Past Alcohol Use History: None Reported Past Drug Use History: None Reported General Exam - General Exam Comments Initial Comments: GENERAL: Well-appearing, well-nourished and in no acute distress. HEAD: Atraumatic, normocephalic. EYES: Pupils equal round and reactive to light, extraocular movements intact, sclera anicteric, conjunctiva are normal. ENT: Nares patent, oropharynx clear without exudates. Moist mucous membranes. NECK: Normal range of motion, supple without lymphadenopathy or JVD. LUNGS: Breath sounds clear to auscultation bilaterally and equal. No wheezes rales or rhonchi. HEART: Regular rate and rhythm without murmurs, rubs or gallops. ABDOMEN: Soft, nontender, normoactive bowel sounds. No guarding, no rebound. No masses appreciated. EXTREMITIES: Normal range of motion, no pitting or edema. No clubbing or cyanosis. NEUROLOGICAL: Normal speech, normal gait. PSYCH: Normal mood, normal affect. SKIN: Warm, Dry, normal turgor, no rashes or lesions noted. Limitations: no limitations External exam: Present: other (Patient's uterus is distended into the vaginal canal and is visible on external exam). Absent: lesions, lacerations By manual exam: Present: normal by manual exam Course Vital Signs 07/24/19 17:12 Temperature 98 F Pulse Rate 102 H Respiratory 16 Rate Blood Pressure 160/76 O2 Sat by Pulse 98 Oximetry Medical Decision Making - Medical Decision Making Patient is an 84-year-old female presenting for a catheter change. Patient also has concerns that she cannot find her pessary. On exam patient has uterine prolapse. Catheter was changed. UA is normal, no signs of infection. Vital signs are stable. Patient has no belly pain or vaginal pain. Patient is stable for discharge at this time. Patient will follow up with her [facility]ST[facility] for pessary placement. Patient is in agreement with this plan of care. Return parameters were discussed with the patient and she verbalized understanding. - Lab Data Lab Results 07/24/19 Range/Units 18:22 Urine Color Colorless Urine Appearance Clear (Clear) Urine pH 7.0 (5.0-8.0) Ur Specific [place] 1.003 (1.001-1.035) Urine Protein Negative (Negative) Urine Glucose (UA) Negative (Negative) Urine Ketones Negative (Negative) Urine Blood Small H (Negative) Urine Nitrite Negative (Negative) Urine Bilirubin Negative (Negative) Urine Urobilinogen <2.0 (<2.0) mg/dL Ur Leukocyte Esterase Moderate H (Negative) Urine RBC 1 (0-5) /hpf Urine WBC 18 H (0-5) /hpf Amorphous Sediment Rare H (None) /hpf Disposition Clinical Impression: Urinary catheter change required, Prolapsed uterus Disposition: HOME SELF-CARE Condition: Stable Instructions (If sedation given, give patient instructions): [place] Catheter Placement and Care (ED) Additional Instructions: Please return to the Emergency Department if symptoms worsen or any other concerns. Follow-up with [facility] for pessary placement. Is patient prescribed a controlled substance at d/c from ED?: No Referrals: Ok Echevarria DO [Primary Care Provider] - 1-2 days
[2019-07-24 19:05] VITALS: BP 155/69; PULSE 98
== END 2019-07-24 19:03 | disposition home or self-care (01) ==
LOC: EC 17:11
DX: N81.4 Uterovaginal prolapse, unspecified (principal); Z46.6 Encounter for fitting and adjustment of urinary device; Z79.82 Long term (current) use of aspirin; Z88.0 Allergy status to penicillin; Z86.14 Personal history of Methicillin resistant Staphylococcus aureus infection
CPT/HCPCS: 51701; 81001; 87086; 99283

== ENCOUNTER 2019-07-24 21:13 | Emergency (ER) | payer MEDICARE, OTHER ==
[2019-07-24 21:18] VITALS: TEMP 97.6
--- NOTE | 2019-07-24 21:23 | ED ---
Female Urogenital HPI - General Chief complaint: Urogenital Stated complaint: Prolapse Time Seen by Provider: 07/24/19 21:23 Source: patient Mode of arrival: wheelchair Limitations: no limitations - History of Present Illness Initial comments: Patient is a pleasant 84-year-old female with a history of complete uterine prolapse for which she has been referred to a surgeon in [place]. Patient currently is treated with a pessary. Patient was seen and evaluated in the emergency department earlier today for a Martinez catheter change. She reports that after going home her pessary was displaced and her uterus is prolapsed. Patient reports that this is not happened since she's had a pessary placed. - Related Data Home Medications Medication Instructions Recorded Confirmed Aspirin EC [Ecotrin Low Dose] 81 mg PO DAILY 03/30/19 03/30/19 Bisacodyl [Dulcolax] 10 mg RECTAL DAILY PRN 03/30/19 03/30/19 Na Phos,M-B/Na Phos,Di-Ba [Fleet 133 ml RECTAL ONCE 03/30/19 03/30/19 Adult] Omeprazole 20 mg PO DAILY 03/30/19 03/30/19 amLODIPine [Norvasc] 5 mg PO DAILY 03/30/19 03/30/19 Previous Rx's Medication Instructions Recorded Acetaminophen Tab [Tylenol] 650 mg PO Q6HR PRN tab 04/02/19 Ensure Clear 1 can PO TID #0 04/02/19 Ibuprofen [Motrin] 400 mg PO Q6HR PRN tab 04/02/19 Allergies Allergy/AdvReac Type Severity Reaction Status Date / Time Penicillins Allergy Unknown Verified 07/24/19 21:18 Childhood Review of Systems ROS Statement: Those systems with pertinent positive or pertinent negative responses have been documented in the HPI. ROS Other: All systems not noted in ROS Statement are negative. Past Medical History Past Medical History: No Reported History Additional Past Medical History / Comment(s): Urinary catheter bc pt needs a bladder suspension History of Any Multi-Drug Resistant Organisms: MRSA Date of last positivie culture/infection: 11/19/16 MDRO Source:: Urine Additional Past Surgical History / Comment(s): displaced fracture of lateral malleolus of right fibula Smoking Status: Never smoker Past Alcohol Use History: None Reported Past Drug Use History: None Reported General Exam - General Exam Comments Initial Comments: Physical Exam GENERAL: Patient is well-developed and well-nourished. Patient is nontoxic and well-hydrated and is in no distress. HENT: Normocephalic, Atraumatic. EYES: PERRL, EOMI PULMONARY: Unlabored respirations. CARDIOVASCULAR: RRR Warm and well perfused extremities ABDOMEN: Non-distended SKIN: No rashes or bruising : Normal external genitalia Uterus is completely prolapsed outside of the vagina, uterus is noted to have some dry skin and excoriations likely secondary to prolapse and rubbing against the diaper NEUROLOGIC: Alert and oriented Normal speech Normal gait MUSCULOSKELETAL: Moving all extremities with no apparent injury PSYCHIATRIC: No SI/HI Limitations: no limitations Course Vital Signs 07/24/19 07/24/19 21:14 22:18 Temperature 97.6 F Pulse Rate 93 73 Respiratory 16 18 Rate Blood Pressure 149/75 149/71 O2 Sat by Pulse 98 97 Oximetry Medical Decision Making - Medical Decision Making The patient was seen and evaluated, history is obtained from the patient and review of medical record As ago exam reveals a completely prolapsed uterus, the uterus was lubricated and gentle pressure was applied until the prolapse was resolved. The pessary device was cleansed with tap water, appropriate lubricated and placed in the vaginal vault, patient tolerated this well Disposition Clinical Impression: Complete uterine prolapse Disposition: HOME SELF-CARE Condition: Stable Instructions (If sedation given, give patient instructions): Uterine Prolapse (ED) Additional Instructions: Contact your [facility] tomorrow to discuss that your urine has no signs of infection and you had to have your pessary replaced You did have some injury to the skin of your cervix/uterus so expect some bloody vaginal discharge Avoid straining or heavy lifting Return if the pessary is again dislodged Is patient prescribed a controlled substance at d/c from ED?: No Referrals: Ok Echevarria DO [Primary Care Provider] - 1-2 days Ron Stevens MD [REFERRING] - 1-2 days
[2019-07-24 22:49] VITALS: BP 149/71; PULSE 73; RESP 18
== END 2019-07-24 23:04 | disposition home or self-care (01) ==
LOC: EC 21:13
DX: N81.4 Uterovaginal prolapse, unspecified (principal); Z88.0 Allergy status to penicillin; Z86.14 Personal history of Methicillin resistant Staphylococcus aureus infection
CPT/HCPCS: 99284

== ENCOUNTER 2019-07-25 16:28 | Emergency (ER) | payer MEDICARE, OTHER ==
[2019-07-25 17:22] VITALS: BP 163/86; PULSE 84; RESP 18; TEMP 97.8
--- NOTE | 2019-07-25 19:44 | ED ---
Female Urogenital HPI - General Chief complaint: Urogenital Stated complaint: catheter problem Time Seen by Provider: 07/25/19 17:55 Source: patient Mode of arrival: ambulatory Limitations: no limitations - History of Present Illness Initial comments: Patient is an 84-year-old female presenting to emergency Department with complaints of a prolapsed uterus. Patient was in the ER yesterday twice for same complaint. Patient states her pessary fell out again. Patient states she is to see her doctor, Dr. babcock tomorrow morning. Patient is just requesting her pessary to be put back in place. Patient has no other complaints at this time. Patient denies fever, chills. Patient does have urinary catheter in place. On arrival to the ER, vital signs are stable. - Related Data Home Medications Medication Instructions Recorded Confirmed Aspirin EC [Ecotrin Low Dose] 81 mg PO DAILY 03/30/19 03/30/19 Bisacodyl [Dulcolax] 10 mg RECTAL DAILY PRN 03/30/19 03/30/19 Na Phos,M-B/Na Phos,Di-Ba [Fleet 133 ml RECTAL ONCE 03/30/19 03/30/19 Adult] Omeprazole 20 mg PO DAILY 03/30/19 03/30/19 amLODIPine [Norvasc] 5 mg PO DAILY 03/30/19 03/30/19 Previous Rx's Medication Instructions Recorded Acetaminophen Tab [Tylenol] 650 mg PO Q6HR PRN tab 04/02/19 Ensure Clear 1 can PO TID #0 04/02/19 Ibuprofen [Motrin] 400 mg PO Q6HR PRN tab 04/02/19 Allergies Allergy/AdvReac Type Severity Reaction Status Date / Time Penicillins Allergy Unknown Verified 07/25/19 17:22 Childhood Review of Systems ROS Statement: Those systems with pertinent positive or pertinent negative responses have been documented in the HPI. ROS Other: All systems not noted in ROS Statement are negative. Past Medical History Past Medical History: No Reported History Additional Past Medical History / Comment(s): Urinary catheter bc pt needs a bladder suspension History of Any Multi-Drug Resistant Organisms: MRSA Date of last positivie culture/infection: 11/19/16 MDRO Source:: Urine Additional Past Surgical History / Comment(s): displaced fracture of lateral malleolus of right fibula Smoking Status: Never smoker Past Alcohol Use History: None Reported Past Drug Use History: None Reported General Exam - General Exam Comments Initial Comments: GENERAL: Well-appearing, well-nourished and in no acute distress. HEAD: Atraumatic, normocephalic. EYES: Pupils equal round and reactive to light, extraocular movements intact, sclera anicteric, conjunctiva are normal. ENT: Nares patent, oropharynx clear without exudates. Moist mucous membranes. NECK: Normal range of motion, supple without lymphadenopathy or JVD. LUNGS: Breath sounds clear to auscultation bilaterally and equal. No wheezes rales or rhonchi. HEART: Regular rate and rhythm without murmurs, rubs or gallops. ABDOMEN: Soft, nontender, normoactive bowel sounds. No guarding, no rebound. No masses appreciated. : Uterus was completely prolapsed. Uterus was able to be reduced and pessary was replaced. No other abnormality seen on exam. EXTREMITIES: Normal range of motion, no pitting or edema. No clubbing or cyanosis. SKIN: Warm, Dry, normal turgor, no rashes or lesions noted. Limitations: no limitations Course Vital Signs 07/25/19 17:17 Temperature 97.8 F Pulse Rate 84 Respiratory 18 Rate Blood Pressure 163/86 O2 Sat by Pulse 98 Oximetry Medical Decision Making - Medical Decision Making Patient is a 84-year-old female presenting with a completely prolapsed uterus. Patient has been seen in the ER on 2 other occasions for same complaint. Patient is seeing her doctor, Dr. Babcock, tomorrow morning. Uterus was able to be reduced and pessary was reinserted. Patient is stable for discharge at this time. She will follow-up with her doctor tomorrow. She is agreeable this plan of care. Return parameters were discussed with the patient she verbalized understanding. Case discussed with Dr. Cedeno. Disposition Clinical Impression: Complete uterine prolapse Disposition: HOME SELF-CARE Condition: Stable Instructions (If sedation given, give patient instructions): Uterine Prolapse (ED) Additional Instructions: Please return to the Emergency Department if symptoms worsen or any other concerns. Follow up with Dr. babcock tomorrow as discussed. Is patient prescribed a controlled substance at d/c from ED?: No Referrals: Ok Echevarria DO [Primary Care Provider] - 1-2 days
== END 2019-07-25 19:52 | disposition home or self-care (01) ==
LOC: EC 16:28
DX: N81.4 Uterovaginal prolapse, unspecified (principal); Z86.14 Personal history of Methicillin resistant Staphylococcus aureus infection; Z88.0 Allergy status to penicillin
CPT/HCPCS: 99284

== ENCOUNTER 2019-09-02 23:40 | Emergency (ER) | payer MEDICARE, OTHER ==
[2019-09-02 23:47] VITALS: TEMP 97.9
--- NOTE | 2019-09-02 23:52 | ED ---
General Adult HPI - General Chief complaint: Urogenital Stated complaint: Catheter Time Seen by Provider: 09/02/19 23:48 Source: patient Mode of arrival: wheelchair Limitations: no limitations - History of Present Illness Initial comments: Patient presents the ED with her daughter stating that her indwelling Martinez catheter and pessary both came out earlier tonight. She states that she awoke to the sensation of having to urinate, and that is when she noticed that her catheter and pessary had fallen out. Patient denies having any symptoms at this time. Patient denies having any pain, fever or chills, GARRETT, chest pain, dyspnea, dizziness, abdominal pain, pelvic pain, urinary symptoms, or any other symptoms or complaints. Patient states that she has had an indwelling Martinez since March 2019, and she states that she last had it replaced last Tuesday. - Related Data Home Medications Medication Instructions Recorded Confirmed Aspirin EC [Ecotrin Low Dose] 81 mg PO DAILY 03/30/19 03/30/19 Bisacodyl [Dulcolax] 10 mg RECTAL DAILY PRN 03/30/19 03/30/19 Na Phos,M-B/Na Phos,Di-Ba [Fleet 133 ml RECTAL ONCE 03/30/19 03/30/19 Adult] Omeprazole 20 mg PO DAILY 03/30/19 03/30/19 amLODIPine [Norvasc] 5 mg PO DAILY 03/30/19 03/30/19 Previous Rx's Medication Instructions Recorded Acetaminophen Tab [Tylenol] 650 mg PO Q6HR PRN tab 04/02/19 Ensure Clear 1 can PO TID #0 04/02/19 Ibuprofen [Motrin] 400 mg PO Q6HR PRN tab 04/02/19 Allergies Allergy/AdvReac Type Severity Reaction Status Date / Time adhesive tape Allergy Rash/Hives Verified 09/02/19 23:46 Penicillins Allergy Unknown Verified 09/02/19 23:46 Childhood Review of Systems ROS Statement: Those systems with pertinent positive or pertinent negative responses have been documented in the HPI. ROS Other: All systems not noted in ROS Statement are negative. Past Medical History Past Medical History: Hypertension Additional Past Medical History / Comment(s): Urinary catheter bc pt needs a bladder suspension, History of Any Multi-Drug Resistant Organisms: MRSA Date of last positivie culture/infection: 3/31/17 MDRO Source:: Urine Additional Past Surgical History / Comment(s): displaced fracture of lateral malleolus of right fibula, Past Psychological History: No Psychological Hx Reported Smoking Status: Never smoker Past Alcohol Use History: None Reported Past Drug Use History: None Reported General Exam Limitations: no limitations General appearance: alert, in no apparent distress Head exam: Present: atraumatic, normocephalic Eye exam: Present: normal appearance, EOMI ENT exam: Present: mucous membranes moist Neck exam: Present: other (Trachea is in midline) Respiratory exam: Present: normal lung sounds bilaterally. Absent: respiratory distress, wheezes, rales, rhonchi Cardiovascular Exam: Present: regular rate, normal rhythm, normal heart sounds, other (Normal radial pulses bilaterally) GI/Abdominal exam: Present: soft. Absent: distended, tenderness, guarding External exam: Present: other (Uterine prolapse is visible on external exam) Extremities exam: Absent: pedal edema Neurological exam: Present: alert, oriented X3 Psychiatric exam: Present: normal affect, normal mood Skin exam: Present: warm, dry, intact, normal color Course Vital Signs 09/02/19 23:41 Temperature 97.9 F Pulse Rate 79 Respiratory 18 Rate Blood Pressure 187/85 O2 Sat by Pulse 99 Oximetry Medical Decision Making - Medical Decision Making Patient's Martinez catheter and pessary were replaced in the ED. Patient continues to deny having any symptoms or complaints. Will discharge patient home with her daughter at this time. Disposition Clinical Impression: Encounter for Martinez catheter replacement Narrative: Vaginal pessary replacement Disposition: HOME SELF-CARE Condition: Stable Instructions (If sedation given, give patient instructions): Martinez Catheter Placement and Care (ED) Additional Instructions: Return to the ER immediately should you develop new or worsening symptoms. Follow up closely with your primary care provider. Is patient prescribed a controlled substance at d/c from ED?: No Referrals: Ok Echevarria DO [Primary Care Provider] - 1-2 days Time of Disposition: 01:04
[2019-09-03 02:06] VITALS: BP 141/75; PULSE 73; RESP 16
== END 2019-09-03 01:20 | disposition home or self-care (01) ==
LOC: EC 23:40
DX: Z46.6 Encounter for fitting and adjustment of urinary device (principal); N81.4 Uterovaginal prolapse, unspecified; I10 Essential (primary) hypertension; Z79.82 Long term (current) use of aspirin; Z79.899 Other long term (current) drug therapy; Z88.0 Allergy status to penicillin; Z91.048 Other nonmedicinal substance allergy status; Z86.14 Personal history of Methicillin resistant Staphylococcus aureus infection
CPT/HCPCS: 51702; 99283